=== PATIENT | female | born 1980 | race Caucasian/White ===

== ENCOUNTER 2022-08-13 20:42 | Inpatient (IN) | payer BC ==
[2022-08-13] MEDS ORDERED: Ondansetron PF 4 MG/2 ML Vial ONE (22:03)
[2022-08-13] MEDS ORDERED: Morphine 4 MG/ML VIAL ONE (22:03)
[2022-08-13 22:44] LABS: ALT (SGPT) 486 U/L (8-55); AST (SGOT) 426 U/L (5-34); Alkaline Phosphatase 120 U/L (40-110); Anion Gap 13 mmol/L (10-20); BUN (Urea Nitrogen) 8 mg/dL (7.0-18.7); Bilirubin, Total 1.6 mg/dL (0.2-1.2); Calc. Creatinine Clearance 0 mL/min (70-130); Calcium 8.5 mg/dL (7.8-10.44); Carbon Dioxide 23 mmol/L (22-29); Chloride 106 mmol/L (98-107); Estimated GFR 105; Globulin 3.1 g/dL (2.4-3.5); Glucose 107 mg/dL (70-105); Protein, Total 7.1 g/dL (6.0-8.3); Sodium 138 mmol/L (136-145)
[2022-08-13] MEDS ORDERED: Piperacillin/Tazobactam 3.375 GM VIAL ONE (22:53)
[2022-08-13] MEDS ORDERED: Meropenem 1 GM in Sodium Chloride 0.9% 100 ML IVPB SCH (23:15)
[2022-08-14 01:54] VITALS: BMI 27.4
[2022-08-14] MEDS: Sodium Chloride 0.9% 1,000 ML IV SCH ×3 (02:00→18:32)
[2022-08-14] MEDS ORDERED: Morphine 2 MG/ML VIAL SLOW IVP PRN (04:31)
[2022-08-14] MEDS: Ondansetron PF 4 MG/2 ML Vial IVP PRN ×3 (04:35→15:59)
[2022-08-14] MEDS: Morphine 4 MG/ML VIAL SLOW IVP PRN ×4 (04:35→20:07)
[2022-08-14] MEDS ORDERED: Bupivacaine/Epinephrine 0.25% 30 ML VIAL ONE (07:37)
[2022-08-14] MEDS ORDERED: Iopamidol 30 ML ONE (07:37)
[2022-08-14] MEDS ORDERED: Midazolam HCl 2 mg/2 ml Vial ONE ×2 (07:50→07:55)
[2022-08-14] MEDS ORDERED: fentaNYL PF 100 MCG/2 ML SYRINGE ONE (07:51)
[2022-08-14] MEDS ORDERED: Scopolamine 1.5 mg/72 hour Patch ONE (07:55)
[2022-08-14] MEDS ORDERED: GLYCOPYRROLATE/PF 0.2 MG/ML VIAL ONE (08:14)
[2022-08-14] MEDS ORDERED: NEOSTIGMINE 3 MG/3 ML SYR 3 MG/3 ML SYRINGE ONE (08:14)
[2022-08-14] MEDS ORDERED: Rocuronium Bromide 10 MG/ML (10ML VIAL) ONE (08:14)
[2022-08-14] MEDS ORDERED: Dexamethasone 20 MG/5 ML VIAL ONE (08:14)
[2022-08-14] MEDS ORDERED: PROPOFOL 200 MG/20 ML VIAL ONE (08:14)
[2022-08-14] MEDS ORDERED: Ondansetron PF 4 MG/2 ML Vial ONE (08:14)
[2022-08-14] MEDS ORDERED: Lidocaine 1% PF 5 ML VIAL ONE (08:14)
[2022-08-14] MEDS ORDERED: Meropenem 1 GM in Sodium Chloride 0.9% 100 ML IVPB SCH ×3 (09:00→14:00)
[2022-08-14] MEDS ORDERED: Sevoflurane 250 ML INH ANEST BOTTLE ONE (09:22)
[2022-08-14] MEDS ORDERED: Ondansetron HCl/PF 4 MG/2 ML Vial IVP PRN (09:47)
[2022-08-14] MEDS ORDERED: Promethazine HCl 25 MG/ML VIAL IM PRN (09:47)
[2022-08-14] MEDS ORDERED: Promethazine HCl 25 MG/ML VIAL ONE (09:59)
[2022-08-14] MEDS ORDERED: Pantoprazole 40 MG VIAL IVP SCH (10:15)
[2022-08-14] MEDS: Meropenem 1 GM in Sodium Chloride 0.9% 100 ML IVPB SCH (16:01)
[2022-08-14] MEDS ORDERED: diphenhydrAMINE 50 MG CAP PO PRN (18:36)
[2022-08-14] MEDS: ALPRAZolam 0.5 MG TAB PO SCH (20:10)
[2022-08-14] MEDS: QUEtiapine 200 MG TAB PO SCH (20:10)
[2022-08-15] MEDS: Morphine 4 MG/ML VIAL SLOW IVP PRN ×4 (00:24→20:44)
[2022-08-15] MEDS: Meropenem 1 GM in Sodium Chloride 0.9% 100 ML IVPB SCH ×4 (00:27→23:54)
[2022-08-15] MEDS: Sodium Chloride 0.9% 1,000 ML IV SCH ×3 (04:20→18:19)
[2022-08-15 08:31] LABS: #Lymphocytes 1.9 thou/uL (1.20-3.40); #Monocytes 0.4 thou/uL (0.11-0.59); #Neutrophils 4.6 thou/uL (1.40-6.50); %Basophils 0.2 % (0.0-1.0); %Eosinophils 0.3 % (0.0-10.0); %Lymphocytes 27.7 % (21.0-51.0); %Neutrophils 65.8 % (42.0-75.0); Hemoglobin 12.2 g/dL (12.0-16.0); Mean Corpuscular HGB CONC 33.5 g/dL (32.0-36.0); Mean Corpuscular Hemoglobin 28.9 pg (27.0-31.0); Mean Corpuscular Volume 86.3 fl (78.0-98.0); Mean Platelet Volume 7.8 fL (7.4-10.4); Platelet Count 205 10x3/uL (130-400); RBC Distribution Width 13.2 % (11.5-14.5); White Blood Cell (WBC) Count 6.9 10x3/uL (4.8-10.8)
[2022-08-15 08:57] LABS: ALT (SGPT) 469 U/L (8-55); AST (SGOT) 298 U/L (5-34); Albumin 3.7 g/dL (3.5-5.0); Alkaline Phosphatase 127 U/L (40-110); Anion Gap 11 mmol/L (10-20); BUN (Urea Nitrogen) 6 mg/dL (7.0-18.7); Bilirubin, Total 2.3 mg/dL (0.2-1.2); Calc. Creatinine Clearance 117 mL/min (70-130); Calcium 8.3 mg/dL (7.8-10.44); Carbon Dioxide 25 mmol/L (22-29); Chloride 106 mmol/L (98-107); Estimated GFR 107; Globulin 3.1 g/dL (2.4-3.5); Glucose 96 mg/dL (70-105); Lipase 12 U/L (8-78); Potassium 4.1 mmol/L (3.5-5.1); Protein, Total 6.8 g/dL (6.0-8.3); Sodium 138 mmol/L (136-145)
[2022-08-15] MEDS ORDERED: Iopamidol 30 ML ONE (09:26)
[2022-08-15] MEDS ORDERED: Indomethacin 50 MG SUPP ONE (09:27)
[2022-08-15] MEDS ORDERED: Midazolam HCl 2 mg/2 ml Vial ONE (09:47)
[2022-08-15] MEDS ORDERED: PROPOFOL 200 MG/20 ML VIAL ONE (09:49)
[2022-08-15] MEDS ORDERED: Dexamethasone 20 MG/5 ML VIAL ONE (09:49)
[2022-08-15] MEDS ORDERED: NEOSTIGMINE 3 MG/3 ML SYR 3 MG/3 ML SYRINGE ONE (09:49)
[2022-08-15] MEDS ORDERED: Rocuronium Bromide 10 MG/ML (10ML VIAL) ONE (09:49)
[2022-08-15] MEDS ORDERED: GLYCOPYRROLATE/PF 0.2 MG/ML VIAL ONE (09:49)
[2022-08-15] MEDS ORDERED: Lidocaine 1% PF 5 ML VIAL ONE (09:49)
[2022-08-15] MEDS ORDERED: Ondansetron PF 4 MG/2 ML Vial ONE (09:49)
[2022-08-15] MEDS ORDERED: HYDROcodone/Acetaminophen 5/325 mg Tablet PO PRN (10:31)
[2022-08-15] MEDS: ALPRAZolam 0.5 MG TAB PO SCH ×2 (12:35→20:44)
[2022-08-15] MEDS: Sertraline 100 MG TAB PO SCH (12:35)
[2022-08-15] MEDS: Pantoprazole 40 MG VIAL IVP SCH (12:35)
[2022-08-15] MEDS: diphenhydrAMINE 25 MG CAP PO PRN (17:01)
[2022-08-15] MEDS: HYDROcodone/Acetaminophen 5/325 mg Tablet PO PRN ×2 (17:04→23:55)
[2022-08-15] MEDS: QUEtiapine 200 MG TAB PO SCH (20:44)
[2022-08-16] MEDS: Sodium Chloride 0.9% 1,000 ML IV SCH ×2 (02:36→08:16)
[2022-08-16] MEDS: Morphine 4 MG/ML VIAL SLOW IVP PRN ×2 (04:13→11:05)
[2022-08-16] MEDS: HYDROcodone/Acetaminophen 5/325 mg Tablet PO PRN ×2 (08:14→12:35)
[2022-08-16] MEDS: ALPRAZolam 0.5 MG TAB PO SCH (08:14)
[2022-08-16] MEDS: Pantoprazole 40 MG VIAL IVP SCH (08:15)
[2022-08-16] MEDS: Meropenem 1 GM in Sodium Chloride 0.9% 100 ML IVPB SCH (08:15)
[2022-08-16] MEDS: Sertraline 100 MG TAB PO SCH (08:15)
[2022-08-16 08:28] VITALS: BP 115/76; TEMP 98.8
[2022-08-16] MEDS: diphenhydrAMINE 25 MG CAP PO PRN (11:06)
== END 2022-08-16 12:47 | disposition home or self-care (01) | DRG 419 ==
LOC: ERS 20:42 → T4-A 23:47 → OBSVTOIN 08-15 15:24
PROVIDERS: ADMIT Surgery; ATTEND Surgery
PROC: 0FT44ZZ Resection of Gallbladder, Percutaneous Endoscopic Approach (ICD-10-PCS; principal; 2022-08-14)
PROC: BF5C2Z0 Other Imaging of Hepatobiliary System, All using Fluorescing Agent, Intraoperative (ICD-10-PCS; 2022-08-14)
PROC: 0FC98ZZ Extirpation of Matter from Common Bile Duct, Via Natural or Artificial Opening Endoscopic (ICD-10-PCS; 2022-08-15)
PROC: BF101ZZ Fluoroscopy of Bile Ducts using Low Osmolar Contrast (ICD-10-PCS; 2022-08-15)
DX: K80.62 Calculus of gallbladder and bile duct with acute cholecystitis without obstruction (principal); K21.9 Gastro-esophageal reflux disease without esophagitis; F41.9 Anxiety disorder, unspecified; Z88.8 Allergy status to other drugs, medicaments and biological substances; Z98.890 Other specified postprocedural states; Z90.49 Acquired absence of other specified parts of digestive tract; Z88.1 Allergy status to other antibiotic agents
CPT/HCPCS: 36415; 47532; 74330; 76705; 80053; 83690; 85025; 88304; 96365; 96366; 96374; 96375; 96376; C1713; C1894; C9113; G0378; J1100; J1611; J2185; J2250; J2270; J2405; J2543; J2550; J2704; J3490; J7050; Q9967